=== PATIENT | male | born 1960 | race Caucasian/White ===

== ENCOUNTER 2017-01-01 03:48 | Emergency (ER) | payer SELFPAY ==
[~2017-01-01] VITALS: Ht 180.3 cm; Wt 110.0 kg
[~2017-01-01 03:48] MED LIST: GLUCTAB PO; NOVO7030P2 SQ; PRIN5TAB PO
[2017-01-01 03:56] VITALS: BP 153/79; PULSE 78; RESP 12; TEMP 97.7; O2SAT 99
[2017-01-01] MEDS ORDERED: ATEN25TA PO (04:07)
[2017-01-01] MEDS ORDERED: METF500T PO (04:07)
--- NOTE | 2017-01-01 04:08 | PD ---
HPI Chief Complaint: Edema Time Seen by Provider: 04:00 Travel History International Travel<30 days: No Contact w/Intl Traveler<30days: No Traveled to known affect area: No History of Present Illness HPI 56-year-old male here with complaint of ankle pain and swelling. Patient states that he sat in a fire anthill, noticed the ants crawling on him and stinging in his buttock and bilateral lower extremities left greater than right. He noticed some swelling in the left ankle, states that it was "shiny in appearance". Concern for possible infection. Notes severe itching greatest on the buttock. No fevers or chills. Patient has not taken anything or applied any topical medications to the bites. PFSH Past Medical History Cardiovascular Problems: Yes (htn) Diabetes: Yes Patient Takes Glucophage: Yes Hypertension: Yes Immunizations Current: Yes Tetanus Vaccination: Unknown Influenza Vaccination: No Past Surgical History Tonsillectomy: Yes Social History Alcohol Use: Yes (OCCAS) Tobacco Use: No (QUIT IN 2006) Substance Use: No Allergies-Medications (Allergen,Severity, Reaction): Coded Allergies: No Known Allergies (Verified , 01/01/17) Reported Meds & Prescriptions Reported Meds & Active Scripts Active Reported Atenolol 25 Mg Tab Unknown Dose PO DAILY Metformin (Metformin HCl) 500 Mg Tab 500 Mg PO BIDPC With meals Review of Systems Except as stated in HPI: all other systems reviewed are Neg Physical Exam Narrative GENERAL: Well-appearing male in no acute distress SKIN: Bilateral lower extremities left greater than right with small papules consistent with bug bites, these are also present on the buttocks. There is no induration, fluctuance or significant erythema. HEAD: Normocephalic. EYES: No scleral icterus. No injection or drainage. CARDIOVASCULAR: Regular rate and rhythm. RESPIRATORY: No accessory muscle use. GASTROINTESTINAL: Obese MUSCULOSKELETAL: Normal gait, moves all extremity's normally NEUROLOGICAL: Awake and alert. Normal speech. PSYCHIATRIC: Appropriate mood and affect; insight and judgment normal. Data Data Last Documented VS Vital Signs Date Time Temp Pulse Resp B/P Pulse Ox O2 Delivery O2 Flow Rate FiO2 01/01/17 03:56 97.7 78 12 153/79 99 Room Air Orders Diphenhydramine Inj (Benadryl Inj) (01/01/17 04:15) Dexamethasone Inj (Decadron Inj) (01/01/17 04:15) MDM Medical Decision Making Medical Screen Exam Complete: Yes Emergency Medical Condition: Yes Medical Record Reviewed: Yes Differential Diagnosis 56-year-old male here with complaint of bug bite. Exam is consistent with multiple bites/things from fire ants. There is no evidence of cellulitis, abscess. Narrative Course Patient was treated with Benadryl, Decadron symptomatically. Encouraged to use Benadryl and hydrocortisone for home Diagnosis Primary Impression: Fire ant bite Qualified Code: T63.421A - Fire ant bite, accidental or unintentional, initial encounter Referrals: Primary Care Physician as needed Additional Instructions: Benadryl as needed for itching. Hydrocortisone cream [id number] as needed for itching. Med/Other Pt SpecificInfo: No Change to Meds Disposition: 01 DISCHARGE HOME Condition: Stable Judith Escoto MD Jan 01, 2017 04:08
[2017-01-01] MEDS ORDERED: DEXAMETHASONE SOD PHOS 20 MG/5 ML VIAL IM ONE (04:15)
[2017-01-01] MEDS ORDERED: diphenhydrAMINE HCL 50 MG/ML VIAL IM ONE (04:15)
== END 2017-01-01 04:37 | disposition home or self-care (01) ==
LOC: NEPE 03:48
DX: T63.421A Toxic effect of venom of ants, accidental (unintentional), initial encounter (principal); I10 Essential (primary) hypertension; E11.9 Type 2 diabetes mellitus without complications; Z79.899 Other long term (current) drug therapy
CPT/HCPCS: 96372; 99284; J1100; J1200